=== PATIENT | female | born 1985 | race Two or more races ===

== ENCOUNTER 2023-04-02 08:51 | Outpatient (CLI) | payer MEDICAID ==
[2023-04-02] MEDS ORDERED: iohexoL-300 100 ML VIAL IVP ONE (10:39)
[2023-04-02] MEDS ORDERED: DIATRIZOATE MEGLU/DIATRIZO SOD 30 ML BOTTLE PO ONE (10:40)
--- NOTE | 2023-04-02 11:17 | CT Report ---
PROCEDURE: ABDOMEN/PELVIS W INDICATIONS: RLQ ABD PAIN CONTRAST: Enteric contrast. Omni [id number] TECHNIQUE: After the administration of oral and intravenous contrast, 5 mm thick sections acquired from the diap hragms to the symphysis. 5 mm thick coronal and sagittal reformats were acquired. For radiation dos e reduction, the following was used: automated exposure control, adjustment of mA and/or kV accordin g to patient size. COMPARISON: None FINDINGS: Image quality: Excellent. Lung bases and heart: Unremarkable. Liver: No solid mass. Hepatomegaly Gallbladder and biliary tree: No radiopaque stones or wall thickening. No biliary dilation. Spleen: No splenomegaly. Pancreas: No pancreatic ductal dilation. Adrenals: No adrenal nodule. Kidneys and ureters: No hydronephrosis. No renal cystic lesion which requires follow up. No solid mas s. Bowel and peritoneum: No bowel distension. No pathologic free fluid. Normal appendix Lymph nodes: No central or retroperitoneal adenopathy. Vessels: No infrarenal aortic aneurysm. PELVIS Reproductive organs: Right probable corpus luteal cyst. Bladder: No abnormal wall thickening, accounting for underdistension. Pelvic lymph nodes: No pelvic adenopathy by size criteria. Bones: No aggressive osseous abnormality. Disc disease at L5-S1. Other: No significant ventral or inguinal hernia. IMPRESSION: No acute finding to explain patient's symptoms. Hepatomegaly. Reviewed by: Bobby Monreal MD on 04/02/2023 10:16 AM [facility] Approved by: Bobby Monreal MD on 04/02/2023 10:16 AM [facility] Station ID: [id number]
== END 2023-04-02 08:52 | disposition home or self-care (01) ==
LOC: DI 08:51
PROVIDERS: ATTEND Physician Assistant
DX: R10.31 Right lower quadrant pain (principal); R16.0 Hepatomegaly, not elsewhere classified
CPT/HCPCS: 74177; Q9963; Q9967